=== PATIENT | female | born 1955 | race Caucasian/White ===

== ENCOUNTER 2020-05-07 11:18 | Emergency (ER) | payer OTHER, SELFPAY ==
[2020-05-07 11:24] VITALS: BP 119/66; PULSE 82; RESP 14; TEMP 36.4; O2SAT 99
--- NOTE | 2020-05-07 11:32 | DI.RAD.S_ITS ---
PROCEDURE: XR FOOT LT MIN 3V INDICATIONS: (pt in ED WR) fall. h/o internal fixation of ankle TECHNIQUE: 3 views of the foot were acquired. COMPARISON: None. FINDINGS: Bones: Diffuse osteopenia. ORIF of the distal tibia. No fractures or dislocations. No suspicious bony lesions. Soft tissues: No tibiotalar joint effusion. Achilles tendon appears normal. IMPRESSION: 1. Diffuse osteopenia. 2. No acute fracture. No osseous lesion. If symptoms and/or clinical suspicion for pathology persist, further assessment with repeat, or advanced imaging (e.g., CT, MRI, or bone scan) may be helpful for further assessment. Dictated by: Rei Schwarz M.D. on 05/07/2020 at 10:46 Approved by: Rei Schwarz M.D. on 05/07/2020 at 10:49
[2020-05-07 11:36] VITALS: PULSE 72
--- NOTE | 2020-05-07 19:30 | ED_ITS ---
HPI - Extremity Injury (Lower) <LUIS ENRIQUE Dietz - Last Filed: 05/07/20 20:07> General Chief Complaint: Extremity Injury, Lower Stated Complaint: Fracture/tripped last night Lt ft Time Seen by Provider: 05/07/20 11:55 Source: patient Mode of arrival: Wheelchair Limitations: no limitations History of Present Illness HPI Narrative: This is a 64-year-old female, nonsmoker, who had compound bilateral malleolar fracture and internal fixation surgery done in January 2020 presents to ED with chief complain of left medial aspect of metatarsal pain. Patient reports she was digging up a horse for post and she accidentally tripped over and tweaked the affected foot and fell last night. Patient denies increasing swelling from baseline. Patient reports intact sensation and is able to move her toes. Patient reports decreased range of motion on affected foot due to pain and was unable to bear her weight after the injury. Patient denies other injuries including her head. Denies pain in the knee, hips. She reports has ortho boot and crutches at home but she was camping when the injury happened so did not have access to this. Patient is surgery was done at [facility] in [place] by [facility]opedic group. Related Data Home Medications Medication Instructions Recorded Confirmed No Known Home Medications 05/07/20 05/07/20 Allergies Allergy/AdvReac Type Severity Reaction Status Date / Time shellfish derived Allergy Severe Vomiting Verified 05/07/20 11:31 lactose Allergy Intermediate Nausea Verified 05/07/20 11:31 Review of Systems <LUIS ENRIQUE Dietz - Last Filed: 05/07/20 20:07> Review of Systems Narrative: General: Denies fever, chills, fatigue, malaise, sweats. HEENT: Denies sinus pain, ear pain, sore throat, difficulty swallowing, dizziness. Respiratory: Denies dyspnea, cough, wheezing, hemoptysis, sputum. Cardiovascular: Denies chest pain, palpitations, orthopnea, edema. Gastrointestinal: Denies nausea, vomiting, abdominal pain, diarrhea, constipation, melena. : Denies dysuria, frequency, incontinence, hematuria, urinary retention. Musculoskeletal: See HPI Skin: Denies rash, skin lesions, or other. Neurologic: Denies weakness, headache, numbness, change in speech, confusion, seizures, incoordination. Psychiatric: No concerning psychosocial issues. 12-point review of systems is negative except for those stated above. Patient History <LUIS ENRIQUE Dietz - Last Filed: 05/07/20 20:07> Medical History (Updated 05/07/20 @ 19:36 by LUIS ENRIQUE Dietz) Bimalleolar fracture of left ankle (Acute) No significant past medical history (Acute) Surgical History (Updated 05/07/20 @ 19:36 by LUIS ENRIQUE Dietz) No pertinent past surgical history (Acute) Social History (Updated 05/07/20 @ 19:37 by LUIS ENRIQUE Dietz) Smoking Status: Former smoker Smoking Status: Former smoker alcohol intake frequency: 0-2 drinks per day Substance Use Type: does not use Exam <LUIS ENRIQUE Dietz - Last Filed: 05/07/20 20:07> Narrative Exam Narrative: General appearance: well developed, well nourished, in no acute distress. Head: normocephalic, atraumatic, no scalp lesions, non-tender. ENT:Hearing grossly intact. Airway patent. Neck/Thyroid: neck supple, full range of motion, no visible masses or meningeal signs. No JVD, non-tender without lymphadenopathy. Skin: no suspicious rashes, lesions over visible areas. Warm and dry and appropriate color for ethnicity. Heart: no clubbing, no cyanosis, no edema. S1 and S2 normal. RRR w/o murmurs, clicks, or bruits. Lungs: Breathing even and unlabored. No stridor. No accessory muscles used. Able to speak in full sentences. Chest: normal shape and expansion. Abdomen: non-obese, non-distended. Neurologic: alert and oriented. Cognitive exam, ZIGZAG APPLIQUER and PNS grossly intact on informal exam. Psych: good eye contact, normal affect. Initial Vital Signs Initial Vital Signs: Vital Signs Temperature 97.6 F 05/07/20 11:24 Pulse Rate 82 05/07/20 11:24 Respiratory Rate 14 05/07/20 11:24 Blood Pressure 119/66 05/07/20 11:24 Pulse Oximetry 99 05/07/20 11:24 Extrem Left lower extremity: hip/thigh Details: normal to inspection; no tenderness, knee Details: normal to inspection; no tenderness and no swelling, ankle Details: normal to inspection; no tenderness and no swelling and foot Details: abnormal to inspection (healed scar and mild swelling to dorsal aspect of mid foot), tenderness Location: of the dorsal foot Location: medially (metatarsal), toes with normal ROM, edema (mild but no changes from baseline), vascular exam Details: dorsalis pedis pulse present and normal capillary refill, tendon exam Details: active flexion abnormal (ankle due to pain) and active extension abnormal (due to pain) and motor-sensory exam Details: light-touch normal; no unusual warmth, no abrasions, no lacerations, no ecchymosis and no crepitus <Alton Rice MD - Last Filed: 05/08/20 08:07> Initial Vital Signs Initial Vital Signs: Vital Signs Temperature 97.6 F 05/07/20 11:24 Pulse Rate 82 05/07/20 11:24 Respiratory Rate 14 05/07/20 11:24 Blood Pressure 119/66 05/07/20 11:24 Pulse Oximetry 99 05/07/20 11:24 Scores <LUIS ENRIQUE Dietz - Last Filed: 05/07/20 20:07> GCS [place] coma scale eye opening: Spontaneous [place] coma scale verbal response: Orientated [place] coma scale motor response: Obey commands [place] coma scale total score: 15 Course <LUIS ENRIQUE Dietz - Last Filed: 05/07/20 20:07> Orders Ordered: ED Orders 05/07/20 11:32 XR foot LT min 3V Stat Vital Signs Vital signs: Vital Signs - 8 hr 05/07/20 11:36 Pulse Rate [Left Dorsalis Pedis] 72 <Alton Rice MD - Last Filed: 05/08/20 08:07> Orders Ordered: ED Orders 05/07/20 11:32 XR foot LT min 3V Stat Vital Signs Vital signs: Vital Signs - 8 hr 05/07/20 11:36 Pulse Rate [Left Dorsalis Pedis] 72 MDM - Extremity Injury (Lower) <LUIS ENRIQUE Dietz - Last Filed: 05/07/20 20:07> Differential Diagnosis Differential diagnosis: Likely ankle sprain and strain, ankle fracture and other (Foot fracture, foot sprain) Medical Records Attestation: I reviewed the patient's medical records. Imaging Data XR-Foot LT: Radiologist's Impression: [address] [address] XRay Report Signed Patient: Chantelle Altman#: [id number] : 6Acct:[id number] Age/Sex: 64 / FDate of Service: 05/07/20 Loc: ED Accession Number: [id number] Procedure: XR foot LT min 3V Ordering Provider: Alton Rice MD PROCEDURE: XR FOOT LT MIN 3V INDICATIONS: (pt in ED WR) fall. h/o internal fixation of ankle TECHNIQUE: 3 views of the foot were acquired. COMPARISON: None. FINDINGS: Bones: Diffuse osteopenia. ORIF of the distal tibia. No fractures or dislocations. No suspicious bony lesions. Soft tissues: No tibiotalar joint effusion. Achilles tendon appears normal. IMPRESSION: 1. Diffuse osteopenia. 2. No acute fracture. No osseous lesion. If symptoms and/or clinical suspicion for pathology persist, further assessment with repeat, or advanced imaging (e.g., CT, MRI, or bone scan) may be helpful for further assessment. Dictated by: Rei Schwarz M.D. on 05/07/2020 at 10:46 Approved by: Rei Schwarz M.D. on 05/07/2020 at 10:49 MDM Narrative Medical decision making narrative: This is a 64 year old female who presents to ED with pain in medial aspect of left dorsal metatarsal. Patient has a history of ORIF of the distal tibia in January 2020 and currently receiving physical therapy for rehabilitation. Today's x-ray does not show fractures or dislocation. Findings were shared with the patient. Patient states she has her own ortho boot, acewrap and crutches at home and state she'll use her own. Patient advised to follow-up with primary care physician and orthopedist at [facility] where she has established care as needed. Return precautions were discussed with the patient and patient verbalized understanding and agreement with treatment plan. The patient provided with copy of CD and written x-ray report. Discharge Plan Departure Patient Disposition: Home Clinical Impression: Ankle sprain and strain Discharge Date/Time: 05/07/20 12:24 Instructions: DI for Foot Sprain Activity Restrictions/Additional Instructions: You have been diagnosed with [left foot strain/sprain. X-ray test today does not show acute findings such as fractures or dislocation. Please use RICE therapy. A CD of x-ray has been provided to you to follow-up as needed.]. What to do: *Take your medications as directed. You can take [id number] ibuprofen/Mo eulalia as needed for pain and inflammation. Ibuprofen 400-600 mg up to 3 times a day as needed for pain with food to decrease GI irritation. You can add Tylenol 650-1000 mg up to 3 to 4 times a day as needed for pain. Please use your own ortho shoes and crutches. Vel wrap as needed. *Follow up with your primary care provider in 2-3 days, call for an appointment. Let them know you were seen in the ED and that we asked you to be seen in follow up. If the pain is not improving after 1-2 weeks, please follow-up with orthopedist at [facility] in [place] where you already have [facility] care. *Return to ED if you have any new, worsening, or concerning symptoms, such as [chest pain, breathing difficulty, unable to tolerate fluids, worsening pain, tingling/numbness/weakness to affected leg or any acute concerns]. Prescriptions: No Action No Known Home Medications RF: 0 Referrals: [facility] [Outside]
== END 2020-05-07 12:24 | disposition home or self-care (01) ==
PROVIDERS: Emergency Provider Nurse Practitioner Family
DX: S93.402A Sprain of unspecified ligament of left ankle, initial encounter (principal); S96.912A Strain of unspecified muscle and tendon at ankle and foot level, left foot, initial encounter; W18.40XA Slipping, tripping and stumbling without falling, unspecified, initial encounter
CPT/HCPCS: 73630; 99281; 99283